=== PATIENT | female | born 2000 | race Caucasian/White ===

== ENCOUNTER 2022-07-31 17:08 | Outpatient (CLI) | payer OTHER ==
--- NOTE | 2022-07-31 22:15 | Ultrasound Report ---
PROCEDURE: OB First Trimester w/TV INDICATIONS: SUPERVISION OF OUTSIDE/PRIOR DATING DATA: Last menstrual period (LMP): 06/04/2022. LMP-based estimated date of delivery (MARIANGEL): 03/11/2023. First dating scan (date and location): 07/31/2022. Estimated date of delivery (MARIANGEL) from first dating scan: 03/12/2023. TECHNIQUE: Real-time scanning was performed of the fetus and maternal pelvic organs, with image documentation. Endovaginal scanning was also performed to better visualize the fetus and maternal ovaries. COMPARISON: None. FINDINGS: Embryo: There is an intrauterine patency with a gestational sac, yolk sac, and pole demonstrat ed. The crown-rump length measures 1.6 cm corresponding to a gestational age of 8 weeks 0 days and es timated delivery date of 03/12/2023. There is heart motion with a rate 166 bpm. There is an ill-defined hypoechoic perigestational region suggestive of a small subchorionic hematoma , measuring approximately 1.3 x 0.8 x 1.3 cm. There is also a heterogeneous oval region within the ut erine myometrium measuring 3 x 1.8 x 2.3 cm likely representing a fibroid. Measurement variability in dating: +/- 4 weeks by LMP, +/- 7 days by mean sac diameter (use before 6 weeks gestation if crown-rump length not able to be measured), +/- 5 days by crown-rump length (6-12 weeks gestation). Maternal organs: Ovaries the ovaries appear within normal size limits. There is a hypoechoic structu re within the left ovary measuring up to 2.5 cm likely representing a corpus luteal cyst.. IMPRESSION: 1. Single living intrauterine with cartilage gestational age of 8 weeks 0 days correspondin g to an estimated delivery date of 03/12/2023. 2. Suspected small subchorionic hematoma. 3. Probable heterogeneous intramural fibroid. 4. Probable corpus luteal cyst in the left ovary. Reviewed by: Micah Li MD on 07/31/2022 10:14 PM PST Approved by: Micah Li MD on 07/31/2022 10:14 PM PST Station ID: [id number]
== END 2022-07-31 17:09 | disposition home or self-care (01) ==
LOC: DI 17:08
PROVIDERS: ATTEND Obstetrics & Gynecology
DX: Z34.81 Encounter for supervision of other normal pregnancy, first trimester (principal)

== ENCOUNTER 2023-04-10 08:00 | Outpatient (CLI) | payer OTHER | END 2023-04-10 23:59 | disposition home or self-care (01) | LOC: LAB 08:00 | PROVIDERS: ATTEND Nurse Practitioner | DX: N39.0 Urinary tract infection, site not specified (principal) | CPT/HCPCS: 87086 ==

== ENCOUNTER 2023-05-17 08:00 | Outpatient (CLI) | payer OTHER | END 2023-05-17 23:59 | disposition home or self-care (01) | LOC: LAB.N 08:00 | PROVIDERS: ATTEND Physician Assistant Medical | DX: N39.0 Urinary tract infection, site not specified (principal) | CPT/HCPCS: 87077; 87086; 87181 ==